=== PATIENT | female | born 1975 | race Two or more races ===

== ENCOUNTER 2025-07-08 12:23 | Outpatient (RCR) | payer MEDICAID, SELFPAY ==
--- NOTE | 2025-07-08 12:30 | XR_ITS ---
Examination: CHELY, hepatobiliary radioisotope scan Date and time of exam: July 08, 2025 0827 hours INDICATIONS: Nausea vomiting diarrhea beginning April 2024 Technique: 5.8 mCi of 99M Hepatolite administered. Serial imaging then obtained from immediate through 60 minutes. . Findings: Radioisotope activity within the liver is reasonably homogenous. Common bile duct small bowel activity noted Impression: Negative for gallbladder activity
== END 2025-07-13 23:59 | disposition home or self-care (01) ==
LOC: SNUC 12:23
PROVIDERS: PCP Nurse Practitioner Family; Referring Provider Nurse Practitioner Family; Visit Provider Nurse Practitioner Family
DX: R10.84 Generalized abdominal pain (principal)
CPT/HCPCS: 78227; A9537